=== PATIENT | male | born 1960 | race Caucasian/White ===

== ENCOUNTER 2017-09-21 08:31 | Inpatient (IN) | payer BC ==
[~2017-09-21] VITALS: Ht 177.8 cm; Wt 86.2 kg
[~2017-09-21 08:31] MED LIST: CLINDAMYCIN HC300 MG PO
[2017-09-21] MEDS ORDERED: COLCHICINE0.6 M2 PO (08:47)
[2017-09-21 08:48] VITALS: BP 142/87
[2017-09-21 09:33] LABS: BASO % 0.3 % (0.0-1.0); HEMATOCRIT 42.1 % (42.0-52.0); HEMOGLOBIN 14.5 g/dl (14.0-18.0); LYMPH # 1.4 10*3/uL (1.3-4.4); LYMPH % 9.7 % (27.0-41.0); MEAN CELL VOLUME 97.2 fl (80.0-94.0); MEAN CORPUSCULAR HGB 33.5 pg (27.0-31.0); MEAN CORPUSCULAR HGB CONC 34.4 g/dl (33.0-37.0); MEAN PLATELET VOLUME 7.7 fl (9.6-12.3); MONO # 1.3 10*3/uL (0.1-1.0); MONO % 8.8 % (3.0-9.0); NEUT # 11.9 10*3/uL (2.3-7.9); NEUT % 80.6 % (47.0-73.0); PLATELET COUNT AUTOMATED 218 10*3/uL (130-400); RED BLOOD COUNT 4.33 10*6/uL (4.50-5.90); RED CELL DISTRI WIDTH 13.4 % (0-14.5); WHITE BLOOD COUNT 14.8 10*3/uL (4.8-10.8)
[2017-09-21 09:45] VITALS: BP 138/88
[2017-09-21 09:49] LABS: ALBUMIN 3.9 gm/dl (3.1-4.5); ALKALINE PHOSPHATASE 70 U/L (45-117); BUN 10 mg/dl (7-24); CHLORIDE 104 mmol/L (98-107); POTASSIUM 3.6 mmol/L (3.5-5.1); SGOT/AST 9 IU/L (3-35); SGPT/ALT 16 U/L (12-78); SODIUM 136 mmol/L (136-145); TOTAL PROTEIN 7.5 gm/dL (6.4-8.2); URIC ACID 4.1 mg/dL (3.5-7.2)
[2017-09-21 10:00] VITALS: BP 138/88
[2017-09-21 12:00] VITALS: BP 119/77
[2017-09-21 16:00] VITALS: BP 138/65
== END 2017-09-21 18:55 | disposition short-term general hospital (02) | DRG 872 ==
LOC: ED 08:31 → EDHOLD 09:13 → 5E 09:18
PROVIDERS: Emergency Medicine
DX: A41.9 Sepsis, unspecified organism (principal); M60.041 Infective myositis, right hand; L03.113 Cellulitis of right upper limb; L02.519 Cutaneous abscess of unspecified hand; R73.9 Hyperglycemia, unspecified; E66.3 Overweight; Z79.899 Other long term (current) drug therapy; Z82.61 Family history of arthritis; Z71.6 Tobacco abuse counseling; Z72.0 Tobacco use; Z68.27 Body mass index [BMI] 27.0-27.9, adult